=== PATIENT | male | born 1950 | race Two or more races ===

== ENCOUNTER 2024-09-16 19:46 | Inpatient (IN) | payer MEDICARE, OTHER ==
[~2024-09-16] VITALS: Ht 170.2 cm; Wt 72.6 kg
[2024-09-16 20:10] LABS: PLATELET COUNT (AUTO) 204 K/uL (150-450); RED BLOOD CELL COUNT(AUTO) 4.18 MIL/uL (4.5-6.0); RED CELL DISTRIBUTION WIDTH 13.3 % (11.5-15.0); WHITE BLOOD COUNT (AUTO) 6.4 K/uL (4.3-11.0)
[2024-09-16 20:16] LABS: CALCIUM, SERUM 9.4 mg/dL (8.5-10.1); CREATININE 1.0 mg/dL (0.6-1.3); SODIUM SERUM 136 mmol/L (136-145); UREA NITROGEN, BLOOD 15 mg/dL (7-18)
[2024-09-16 20:22] LABS: ALCOHOL, BLOOD < 3 mg/dL (0-10); ASPARTATE AMINOTRANSFERASE 26 U/L (15-37); TOTAL PROTEIN, SERUM 7.3 g/dL (6.4-8.2)
[2024-09-16 20:57] LABS: APPEARANCE,URINE CLEAR (CLEAR); BLOOD, URINE NEGATIVE Ery/uL (NEGATIVE); LEUKOCYTE ESTERASE ,URINE NEGATIVE (NEGATIVE); NITRITE, URINE NEGATIVE (NEGATIVE); UGLUCOSE NEGATIVE (NEGATIVE)
[2024-09-16 21:04] LABS: AMPHETAMINE, URINE NEGATIVE (NEGATIVE); BARBITURATE, URINE NEGATIVE (NEGATIVE); BENZODIAZEPINE, URINE NEGATIVE (NEGATIVE); CANNABINOID, URINE NEGATIVE (NEGATIVE); COCCAINE, URINE NEGATIVE (NEGATIVE); OPIATE, URINE NEGATIVE (NEGATIVE)
[2024-09-16 21:05] LABS: ADD URINE CULTURE NO; SQUAMOUS EPITHELIAL CELL,UR Rare /HPF (None Seen)
[2024-09-17] MEDS ORDERED: GABA-532 PO (00:16)
[2024-09-17] MEDS ORDERED: ASCO500C17 PO (00:16)
[2024-09-17] MEDS ORDERED: VIT1CAPS9 PO (00:16)
[2024-09-17] MEDS ORDERED: DIVA125C5 PO (00:16)
[2024-09-17] MEDS ORDERED: LEVO150T8 PO (00:16)
[2024-09-17] MEDS ORDERED: TAMS-12 PO (00:16)
[2024-09-17] MEDS ORDERED: ASPI-1498 PO (00:16)
[2024-09-17] MEDS ORDERED: LOSA25TA27 PO (00:16)
[2024-09-17] MEDS ORDERED: FURO-144 PO (00:16)
[2024-09-17] MEDS ORDERED: BUSP5TAB3 PO (00:16)
[2024-09-17] MEDS ORDERED: FINA5TAB11 PO (00:16)
[2024-09-17 03:00] VITALS: BP 133/81; TEMP 98.1; O2SAT 96
[2024-09-17] MEDS ORDERED: ZOLPIDEM TARTRATE 5 MG TABLET PO PRN (03:30)
[2024-09-17] MEDS ORDERED: MAGNESIUM HYDROXIDE 30 ML UDC PO PRN (03:30)
[2024-09-17] MEDS ORDERED: ACETAMINOPHEN 325 MG TABLET PO PRN (03:30)
[2024-09-17] MEDS ORDERED: MAG HYDROX/AL HYDROX/SIMETH 30 ML UDC PO PRN (03:30)
[2024-09-17] MEDS ORDERED: QUETIAPINE FUMARATE 25 MG TABLET PO PRN ×2 (03:30)
[2024-09-17] MEDS: BLOOD SUGAR DIAGNOSTIC 1 EACH STRIP IN ONE (03:43)
[2024-09-17 08:00] VITALS: BP 100/63; TEMP 98.6; O2SAT 97
[2024-09-17] MEDS ORDERED: DIVA125T32 PO (09:53)
[2024-09-17] MEDS ORDERED: ACET325T53 PO (09:53)
[2024-09-17] MEDS ORDERED: MELA5TAB PO (09:53)
[2024-09-17] MEDS ORDERED: ATOR80TA PO (09:53)
[2024-09-17] MEDS ORDERED: CRAN300T PO (09:53)
[2024-09-17] MEDS ORDERED: ACET-73 PO (09:53)
[2024-09-17 16:00] VITALS: BP 129/68; TEMP 98.6; O2SAT 98
[2024-09-17 19:48] VITALS: BP 144/78; TEMP 98.5; O2SAT 99
[2024-09-17] MEDS: DIVALPROEX SODIUM 125 MG TABLET.DR PO SCH (20:29)
[2024-09-18 08:00] VITALS: BP 124/86; TEMP 98.7; O2SAT 98
[2024-09-18 08:09] LABS: LDL 66 mg/dL (0-99)
[2024-09-18 08:23] LABS: ASPARTATE AMINOTRANSFERASE 31.0 U/L (15-37); CALCIUM, SERUM 9.3 mg/dL (8.5-10.1); CREATININE 0.7 mg/dL (0.6-1.3); SODIUM SERUM 136.0 mmol/L (136-145); TOTAL PROTEIN, SERUM 7.2 g/dL (6.4-8.2); UREA NITROGEN, BLOOD 9.0 mg/dL (7-18)
[2024-09-18 20:34] VITALS: BP 107/88; TEMP 98.8; O2SAT 96
[2024-09-19 08:00] VITALS: BP 121/98; TEMP 97.8; O2SAT 96
[2024-09-19] MEDS ORDERED: ACETAMINOPHEN 325 MG TABLET PO PRN (15:00)
[2024-09-19] MEDS ORDERED: ACETAMINOPHEN ES 500 MG TABLET PO PRN (15:00)
[2024-09-19 16:00] VITALS: BP 103/86; TEMP 97.9; O2SAT 96
[2024-09-19] MEDS: FUROSEMIDE 40 MG TABLET PO SCH (16:49)
[2024-09-19] MEDS: GABAPENTIN 100 MG CAPSULE PO SCH (16:50)
[2024-09-19 20:12] VITALS: BP 124/96; TEMP 98.4; O2SAT 96
[2024-09-20 08:00] VITALS: BP 131/84; TEMP 97.7; O2SAT 98
[2024-09-20] MEDS: LOSARTAN POTASSIUM 25 MG TABLET PO SCH (09:14)
[2024-09-20] MEDS: ASCORBIC ACID 500 MG TABLET PO SCH (09:14)
[2024-09-20] MEDS: MULTIVITAMIN/LUTEIN/MINERALS 1 TAB PO SCH (09:14)
[2024-09-20] MEDS: TAMSULOSIN 0.4 MG CAP.SR.24H PO SCH (09:14)
[2024-09-20] MEDS: FINASTERIDE (5 MG) 5 MG TABLET PO SCH (09:14)
[2024-09-20] MEDS: ASPIRIN EC 81 MG TABLET.DR PO SCH (09:14)
[2024-09-20] MEDS: LEVOTHYROXINE SODIUM 75 MCG TABLET PO SCH (09:14)
[2024-09-20] MEDS: ATORVASTATIN 40 MG TABLET PO SCH (09:15)
[2024-09-20 12:20] VITALS: BP 92/51; TEMP 97.6; O2SAT 94
[2024-09-20] MEDS: IV NS 0.9% 1,000 ML IV ONE (12:34)
[2024-09-20 13:00] VITALS: BP 94/51; O2SAT 97
[2024-09-20 13:09] VITALS: BP 116/54; O2SAT 96
[2024-09-20 16:00] VITALS: BP 114/65; TEMP 97.9; O2SAT 96; O2SAT 98
[2024-09-20 21:29] VITALS: BP 115/55; TEMP 97.9; O2SAT 98
[2024-09-21 08:00] VITALS: BP 154/69; TEMP 98; O2SAT 98
[2024-09-21 16:00] VITALS: BP 102/61; TEMP 97.7; O2SAT 98
[2024-09-21 20:18] VITALS: BP 106/58; TEMP 97.7; O2SAT 96
[2024-09-22 08:00] VITALS: BP 90/64; TEMP 97.9; O2SAT 94
[2024-09-22 16:04] VITALS: BP 94/81; TEMP 98.2; O2SAT 93
[2024-09-22 20:34] VITALS: BP 127/62; TEMP 98.2; O2SAT 98
[2024-09-23 08:00] VITALS: BP 104/55; TEMP 97.9; O2SAT 96
[2024-09-23] MEDS: DIVALPROEX SODIUM 125 MG TABLET.DR PO SCH (14:12)
[2024-09-23 16:00] VITALS: BP 123/67; TEMP 98.1; O2SAT 96
[2024-09-23 19:46] VITALS: BP 114/66; TEMP 97.9; O2SAT 96
[2024-09-24 08:00] VITALS: BP 111/57; TEMP 98.1; O2SAT 97
[2024-09-24 16:00] VITALS: BP 129/66; TEMP 97.5; O2SAT 96
[2024-09-24 19:43] VITALS: BP 115/56; TEMP 97.6; O2SAT 98
[2024-09-24 20:13] VITALS: BP 116/65; TEMP 98; O2SAT 98
[2024-09-25 08:00] VITALS: BP 112/57; TEMP 98.1; O2SAT 98
[2024-09-25 16:01] VITALS: BP 110/56; TEMP 97.7; O2SAT 97
[2024-09-25 20:24] VITALS: BP 134/77; TEMP 97.8; O2SAT 96
[2024-09-26 08:00] VITALS: BP 107/63; TEMP 98.6; O2SAT 97
[2024-09-26 16:00] VITALS: BP 133/69; TEMP 98.2; O2SAT 100
[2024-09-26 20:00] VITALS: BP 115/70; TEMP 97; O2SAT 98
[2024-09-27 08:50] VITALS: BP 149/51; TEMP 98.1; O2SAT 98
[2024-09-27 17:00] VITALS: BP 99/57; TEMP 98; O2SAT 97
[2024-09-27 20:35] VITALS: BP 108/62; TEMP 98.3; O2SAT 97
[2024-09-28 08:00] VITALS: BP 115/64; TEMP 97.8; O2SAT 97
[2024-09-28 16:00] VITALS: BP 120/70; TEMP 98.2; O2SAT 98
[2024-09-28 20:27] VITALS: BP 110/94; TEMP 98.2; O2SAT 97
[2024-09-29 08:06] VITALS: BP 108/56; TEMP 97.9; O2SAT 97
[2024-09-29 17:37] VITALS: BP 115/67; TEMP 97.5; O2SAT 96
[2024-09-29 20:35] VITALS: BP 127/51; TEMP 97.8; O2SAT 96
[2024-09-30 08:00] VITALS: BP 128/52; TEMP 97.9; O2SAT 99
[2024-09-30 08:11] VITALS: BP 128/52; TEMP 97.9; O2SAT 99
[2024-09-30 08:50] VITALS: BP 128/52
[2024-09-30 15:53] VITALS: O2SAT 98
== END 2024-09-30 19:15 | DRG 885 ==
LOC: ER 19:47 → GPS 21:03
PROVIDERS: ADMIT Psychiatry & Neurology Psychiatry; ATTEND Student in an Organized Health Care Education/Training Program
DX: F29 Unspecified psychosis not due to a substance or known physiological condition (principal); F03.92 Unspecified dementia, unspecified severity, with psychotic disturbance; F03.93 Unspecified dementia, unspecified severity, with mood disturbance; G93.40 Encephalopathy, unspecified; F39 Unspecified mood [affective] disorder; I25.10 Atherosclerotic heart disease of native coronary artery without angina pectoris; I10 Essential (primary) hypertension; Z20.822 Contact with and (suspected) exposure to COVID-19; Z73.6 Limitation of activities due to disability; D64.9 Anemia, unspecified; E03.9 Hypothyroidism, unspecified; E11.9 Type 2 diabetes mellitus without complications; E66.9 Obesity, unspecified; E78.5 Hyperlipidemia, unspecified; G47.00 Insomnia, unspecified; J43.9 Emphysema, unspecified; Z79.899 Other long term (current) drug therapy; Z68.25 Body mass index [BMI] 25.0-25.9, adult
CPT/HCPCS: 36415; 80048-TC; 80053-TC; 80061-TC; 80076-TC; 80164-TC; 81001; 82962-TC; 85025-TC; 87081-TC; 97110-TC; 97112-TC; 97116-TC; 97530-TC; A4223; G0480; J7030; Q0163

== ENCOUNTER 2024-10-13 08:57 | Inpatient (IN) | payer MEDICARE, OTHER ==
[~2024-10-13] VITALS: Ht 172.7 cm; Wt 81.9 kg
[~2024-10-13 08:57] MED LIST: ACET-73 PO; ACET325T53 PO; ASCO500C17 PO; ASPI-1498 PO; ATOR80TA PO; BUSP5TAB3 PO; CRAN300T PO; DIVA125T32 PO; FINA5TAB11 PO; FURO-144 PO; GABA-532 PO; LEVO150T8 PO; LOSA25TA27 PO; MELA5TAB PO; TAMS-12 PO; VIT1CAPS9 PO
[2024-10-13] MEDS ORDERED: ONDANSETRON HCL/PF 4 MG/2 ML VIAL ONE (09:09)
[2024-10-13] MEDS ORDERED: MORPHINE SULFATE INJ 2 MG/ML DISP.SYRIN ONE (09:09)
[2024-10-13] MEDS: MORPHINE SULFATE INJ 2 MG/ML DISP.SYRIN IV ONE (09:36)
[2024-10-13] MEDS: ONDANSETRON HCL/PF 4 MG/2 ML VIAL IVP ONE (09:36)
[2024-10-13] MEDS ORDERED: CLOT15CR5 TP (09:41)
[2024-10-13] MEDS ORDERED: DIVA-76 PO (09:41)
[2024-10-13] MEDS ORDERED: ZOLP5TAB8 PO (09:41)
[2024-10-13] MEDS ORDERED: RISP0.5T65 PO (09:41)
[2024-10-13] MEDS ORDERED: NYST60PO TP (09:41)
[2024-10-13 09:47] LABS: PLATELET COUNT (AUTO) 176 K/uL (150-450); RED BLOOD CELL COUNT(AUTO) 4.50 MIL/uL (4.5-6.0); RED CELL DISTRIBUTION WIDTH 13.4 % (11.5-15.0); WHITE BLOOD COUNT (AUTO) 7.0 K/uL (4.3-11.0)
[2024-10-13 10:01] LABS: CALCIUM, SERUM 9.5 mg/dL (8.5-10.1); CREATININE 0.7 mg/dL (0.6-1.3); SODIUM SERUM 136 mmol/L (136-145); UREA NITROGEN, BLOOD 11 mg/dL (7-18)
[2024-10-13 10:07] LABS: INR 1.04 (0.91-1.10)
[2024-10-13 10:08] LABS: LACTIC ACID 1.6 mmol/L (0.4-2.0)
[2024-10-13 10:15] LABS: ASPARTATE AMINOTRANSFERASE 49 U/L (15-37); TOTAL PROTEIN, SERUM 7.1 g/dL (6.4-8.2)
[2024-10-13 10:34] VITALS: O2SAT 99
[2024-10-13 11:00] VITALS: BP 149/70; TEMP 97.5; O2SAT 95
[2024-10-13 16:00] VITALS: BP 113/53; TEMP 97.5; O2SAT 99
[2024-10-13 20:00] VITALS: BP 110/54; TEMP 98.2; O2SAT 95
[2024-10-14 07:30] VITALS: BP 145/57; TEMP 98.1; O2SAT 91
[2024-10-14] MEDS: ASPIRIN EC 81 MG TABLET.DR PO SCH (09:00)
[2024-10-14] MEDS: DIVALPROEX SODIUM 250 MG TABLET.DR PO SCH (09:00)
[2024-10-14] MEDS: GABAPENTIN 100 MG CAPSULE PO SCH (09:00)
[2024-10-14] MEDS: FINASTERIDE (5 MG) 5 MG TABLET PO SCH (09:00)
[2024-10-14] MEDS ORDERED: MIDAZOLAM HCL 2 MG/2ML VIAL ONE (10:01)
[2024-10-14] MEDS ORDERED: FENTANYL PF 100MCG/2ML AMPUL ONE (10:01)
[2024-10-14] MEDS ORDERED: VANCOMYCIN 1 GM VIAL ONE (10:36)
[2024-10-14] MEDS ORDERED: BUPIVACAINE 0.5 % PF 150 MG/30 ML VIAL ONE (10:36)
[2024-10-14] MEDS ORDERED: MORPHINE SULFATE INJ 2 MG/ML DISP.SYRIN IV PRN (13:00)
[2024-10-14] MEDS: IV D5/0.45 NACL W/20 MEQ KCL 1L IV SCH (13:56)
[2024-10-14 16:00] VITALS: BP 101/43; TEMP 97.3; O2SAT 96
[2024-10-14] MEDS: ANCEF 1 GM/50 ML D5W IV SCH (17:47)
[2024-10-14 21:32] VITALS: BP 104/41; TEMP 97.9; O2SAT 95
[2024-10-14] MEDS: ATORVASTATIN 40 MG TABLET PO SCH (21:56)
[2024-10-14] MEDS: TAMSULOSIN 0.4 MG CAP.SR.24H PO SCH (21:57)
[2024-10-15 08:00] VITALS: BP 100/52; TEMP 98.1; O2SAT 98
[2024-10-15] MEDS: LEVOTHYROXINE SODIUM 75 MCG TABLET PO SCH (08:06)
[2024-10-15] MEDS: HYDROCODONE/APAP 10/325MG TABLET PO PRN (09:11)
[2024-10-15 15:59] VITALS: BP 96/55; TEMP 98.2; O2SAT 95
[2024-10-15 20:00] VITALS: BP 114/54; TEMP 97.5; O2SAT 97
[2024-10-16 07:00] VITALS: BP 115/45; TEMP 97.7; O2SAT 97
[2024-10-16 08:32] LABS: PLATELET COUNT (AUTO) 150 K/uL (150-450); RED BLOOD CELL COUNT(AUTO) 3.60 MIL/uL (4.5-6.0); WHITE BLOOD COUNT (AUTO) 9.9 K/uL (4.3-11.0)
[2024-10-16 08:54] LABS: CALCIUM, SERUM 9.0 mg/dL (8.5-10.1); CREATININE 0.7 mg/dL (0.6-1.3); PHOSPHORUS 2.8 mg/dL (2.5-4.9); SODIUM SERUM 138 mmol/L (136-145); UREA NITROGEN, BLOOD 11 mg/dL (7-18)
[2024-10-16] MEDS ORDERED: HYDR-3980 PO (15:05)
[2024-10-16] MEDS ORDERED: ENOX40DI SQ (15:05)
[2024-10-16 16:00] VITALS: BP 101/49; TEMP 98.2; O2SAT 98
== END 2024-10-16 18:20 | DRG 522 ==
LOC: ER 08:57 → MED 10:25
PROVIDERS: ADMIT Nurse Practitioner Acute Care; ATTEND Nurse Practitioner Family
PROC: 0SRR0JA Replacement of Right Hip Joint, Femoral Surface with Synthetic Substitute, Uncemented, Open Approach (ICD-10-PCS; principal; 2024-10-14 09:30)
DX: S72.031A Displaced midcervical fracture of right femur, initial encounter for closed fracture (principal); W06.XXXA Fall from bed, initial encounter; E03.9 Hypothyroidism, unspecified; F39 Unspecified mood [affective] disorder; E11.40 Type 2 diabetes mellitus with diabetic neuropathy, unspecified; N40.0 Benign prostatic hyperplasia without lower urinary tract symptoms; D63.8 Anemia in other chronic diseases classified elsewhere; E78.5 Hyperlipidemia, unspecified; I10 Essential (primary) hypertension; Y93.9 Activity, unspecified; Y92.129 Unspecified place in nursing home as the place of occurrence of the external cause; Z95.2 Presence of prosthetic heart valve; E11.51 Type 2 diabetes mellitus with diabetic peripheral angiopathy without gangrene
CPT/HCPCS: 36415; 70450-TC; 71045-TC; 71250-TC; 72125-TC; 73501; 73502; 80048-TC; 80076-TC; 82962-TC; 83605-TC; 83735-TC; 84100-TC; 84484-TC; 85025-TC; 85027-TC; 85730-TC; 86850-TC; 87040-TC; 87081-TC; 88305-TC; 88311-TC; 93307-TC; 97110-TC; 97116-TC; 97530-TC; A4223; A6209; C1776; G0378; J0330; J0690; J1100; J1885; J2250; J2270; J2405; J2704; J3010; J3373; J3480; J3490; J7030; J7050; J7060